=== PATIENT | male | born 2000 | race African-American/Black ===

== ENCOUNTER 2022-12-08 23:04 | Emergency (ER) | payer OTHER ==
[~2022-12-08] VITALS: Ht 172.7 cm; Wt 97.2 kg
[2022-12-09 01:20] LABS: BASO # 0.1 10^3/uL (0.0-0.2); BASO % 1.2 % (0.0-1.0); EOS # 0.1 10^3/uL (0.0-0.5); EOS % 2.1 % (0.0-3.0); HEMOGLOBIN 15.2 g/dl (13.5-17.5); LYMPH # 1.7 10^3/uL (1.5-5.0); LYMPH % 40.4 % (24.0-44.0); MEAN CORPUSCULAR HEMOGLOBIN 29.6 pg (27.0-33.0); MEAN CORPUSCULAR HGB CONC 33.8 g/dl (32.0-36.5); MEAN CORPUSCULAR VOLUME 87.7 fl (80.0-96.0); MONO # 0.4 10^3/uL (0.0-0.8); MONO % 9.7 % (2.0-8.0); NEUTROPHILS % 46.4 % (36.0-66.0); PLATELET COUNT, AUTOMATED 256 10^3/uL (150-450); RED BLOOD COUNT 5.13 10^6/uL (4.30-6.10); WHITE BLOOD COUNT 4.2 10^3/uL (4.0-10.0)
[2022-12-09 01:49] LABS: BLOOD UREA NITROGEN 15 MG/DL (9-23); CALCIUM LEVEL 8.7 MG/DL (8.5-10.1); CARBON DIOXIDE LEVEL 27 MMOL/L (20-31); CHLORIDE LEVEL 105 MMOL/L (98-107); CREATININE FOR GFR 0.87 MG/DL (0.70-1.30); GLOMERULAR FILTRATION RATE > 60.0 (>60); GLUCOSE, FASTING 89 MG/DL (60-100); POTASSIUM SERUM 4.3 MMOL/L (3.5-5.1); SODIUM LEVEL 138 MMOL/L (136-145)
[2022-12-09 02:08] VITALS: BP 141/70
== END 2022-12-09 02:10 | disposition home or self-care (01) ==
LOC: M ED 23:04
DX: R19.7 Diarrhea, unspecified (principal); J45.909 Unspecified asthma, uncomplicated; Z91.011 Allergy to milk products; Z91.013 Allergy to seafood

== ENCOUNTER 2024-04-28 11:02 | Emergency (ER) | payer OTHER ==
[~2024-04-28] VITALS: Ht 172.7 cm; Wt 103.8 kg
[2024-04-28 11:03] VITALS: BP 128/73; TEMP 97.6; O2SAT 96
[2024-04-28] MEDS: KETOROLAC 60MG 2ML VIAL IM ONE (13:51)
[2024-04-28] MEDS ORDERED: MELO15TA28 PO (14:36)
== END 2024-04-28 14:51 | disposition home or self-care (01) ==
LOC: M ED 11:02
DX: M25.561 Pain in right knee (principal); R20.2 Paresthesia of skin; K21.9 Gastro-esophageal reflux disease without esophagitis; Z91.013 Allergy to seafood; Z91.048 Other nonmedicinal substance allergy status; Y92.39 Other specified sports and athletic area as the place of occurrence of the external cause; Y93.B3 Activity, free weights; Y99.9 Unspecified external cause status; Z79.899 Other long term (current) drug therapy
CPT/HCPCS: 73564; 93971; 96372; 99284; J1885

== ENCOUNTER 2025-07-08 09:00 | Emergency (ER) | payer OTHER ==
[~2025-07-08] VITALS: Ht 170.2 cm; Wt 106.5 kg
[~2025-07-08 09:00] MED LIST: MELO15TA28 PO
[2025-07-08 09:01] VITALS: TEMP 97.8
[2025-07-08] MEDS: IBUPROFEN 600 MG TAB PO ONE (10:44)
[2025-07-08 10:56] VITALS: BP 134/76; O2SAT 100
== END 2025-07-08 10:59 | disposition home or self-care (01) ==
LOC: M ED 09:00
DX: M25.561 Pain in right knee (principal); Z91.013 Allergy to seafood; Z91.048 Other nonmedicinal substance allergy status